=== PATIENT | female | born 1960 | race Caucasian/White ===

== ENCOUNTER 2022-01-18 16:57 | Inpatient (IN) | payer BC, OTHER ==
[~2022-01-18] VITALS: Ht 175.3 cm; Wt 87.4 kg
[2022-01-18 17:42] LABS: Basophils # (auto) 0.2 10 ^3/uL (0-0.2); Basophils % (auto) 1.8 % (0.0-2.0); Eosinophils # (auto) 0.4 10 ^3/uL (0-0.8); Eosinophils % (auto) 4.3 % (0.0-7.0); Hematocrit 34.7 % (36.0-46.0); Hemoglobin 12.1 g/dL (12.2-16.2); Lymphocytes # (auto) 3.3 10 ^3/uL (0.4-5.4); Lymphocytes % (auto) 32.3 % (10.0-50.0); Mean Corpuscular Hemoglobin 32.9 pg (28.0-32.0); Mean Corpuscular Hgb Conc. 34.9 g/dL (32.0-36.0); Mean Corpuscular Volume 94.3 fL (80.0-100.0); Monocytes # (auto) 0.6 10 ^3/uL (0-1.3); Monocytes % (auto) 6.1 % (0.0-12.0); Neutrophils # (auto) 5.6 10 ^3/uL (1.6-8.6); Neutrophils % (auto) 55.5 % (37.0-80.0); Nucleated Red Blood Cells % 0.1 %; Red Blood Cells 3.68 10^6/uL (4.0-5.20); Red Cell Distribution Width 13.6 % (11.8-14.3); White Blood Cell 10.1 10^3/uL (4.4-10.8)
[2022-01-18 18:03] LABS: Albumin 3.6 g/dL (3.4-5.0); Calcium 12.7 mg/dL (8.5-10.1); Potassium 4.1 mmol/L (3.5-5.1)
[2022-01-18 18:06] LABS: Bilirubin, Total 0.4 mg/dL (0.2-1.0); Total Protein 7.2 g/dL (6.4-8.2)
[2022-01-18 19:17] LABS: INR 0.99 (0.9-1.15); Partial Thromboplastin Time 23.3 sec (23.6-33.0)
[2022-01-18] MEDS ORDERED: DOCUSATE SOD 100 MG CAP PO PRN (21:30)
[2022-01-18] MEDS ORDERED: ACETAMINOPHEN 325 MG TAB PO PRN (21:30)
[2022-01-18] MEDS ORDERED: ENOXAPARIN SOD 100 MG/1 ML SYRINGE SC ONE (21:30)
[2022-01-18] MEDS ORDERED: ONDANSETRON HCL 4 MG/2 ML VIAL IV PRN (21:30)
[2022-01-18] MEDS: HEPARIN SODIUM (PORCINE) 5000 UNITS/ML 1ML VIAL SC SCH (22:00)
[2022-01-18] MEDS: SODIUM CHLOR 0.9% PF (SALINE LOCK) 10ML VIAL/SYR IV SCH (22:13)
[2022-01-18] MEDS ORDERED: MORPHINE SULFATE INJ 2 MG/ml SYRG IV PRN (22:45)
[2022-01-18] MEDS ORDERED: NITROGLYCERIN 0.4 MG SL TAB SL PRN (22:45)
[2022-01-18 23:51] VITALS: BP 140/82
[2022-01-19] MEDS: SODIUM CHLOR 0.9% PF (SALINE LOCK) 10ML VIAL/SYR IV SCH ×3 (05:56→21:33)
[2022-01-19] MEDS: HYDROcodone-ACET 5/325MG TAB PO PRN ×3 (06:00→21:37)
[2022-01-19 06:29] LABS: Basophils # (auto) 0.1 10 ^3/uL (0-0.2); Basophils % (auto) 1.3 % (0.0-2.0); Eosinophils # (auto) 0.5 10 ^3/uL (0-0.8); Eosinophils % (auto) 5.4 % (0.0-7.0); Hematocrit 34.5 % (36.0-46.0); Hemoglobin 12.1 g/dL (12.2-16.2); Lymphocytes # (auto) 2.7 10 ^3/uL (0.4-5.4); Lymphocytes % (auto) 28.6 % (10.0-50.0); Mean Corpuscular Hgb Conc. 35.1 g/dL (32.0-36.0); Mean Corpuscular Volume 93.8 fL (80.0-100.0); Monocytes # (auto) 0.6 10 ^3/uL (0-1.3); Monocytes % (auto) 6.4 % (0.0-12.0); Neutrophils # (auto) 5.6 10 ^3/uL (1.6-8.6); Neutrophils % (auto) 58.3 % (37.0-80.0); Nucleated Red Blood Cells % 0.1 %; Red Blood Cells 3.68 10^6/uL (4.0-5.20); Red Cell Distribution Width 13.5 % (11.8-14.3); White Blood Cell 9.6 10^3/uL (4.4-10.8)
[2022-01-19 06:52] LABS: Albumin 3.2 g/dL (3.4-5.0); Calcium 12.3 mg/dL (8.5-10.1); Potassium 4.3 mmol/L (3.5-5.1)
[2022-01-19 06:58] LABS: BUN/Creatinine Ratio 21.2; Bilirubin, Total 0.4 mg/dL (0.2-1.0); Total Protein 6.4 g/dL (6.4-8.2)
[2022-01-19] MEDS ORDERED: BACL10TA PO (07:05)
[2022-01-19] MEDS ORDERED: DOCU-94 PO (07:15)
[2022-01-19] MEDS ORDERED: FAMO20TA10 GT (07:15)
[2022-01-19] MEDS ORDERED: TRAM50TA2 PO ×2 (07:15)
[2022-01-19 07:45] VITALS: BP 137/91
[2022-01-19 08:30] VITALS: BP 147/88
[2022-01-19] MEDS: HEPARIN SODIUM (PORCINE) 5000 UNITS/ML 1ML VIAL SC SCH (09:37)
[2022-01-19 13:00] VITALS: BP 147/85
[2022-01-19] MEDS ORDERED: hydrALAZINE HCL 20 MG/ML VL IV PRN (14:30)
[2022-01-19] MEDS ORDERED: NICOTINE 21MG/24 HR TOPICAL PATCH TD ONE (14:45)
[2022-01-19] MEDS: SODIUM CHLORIDE 0.9% 1,000 ML IV SCH (15:17)
[2022-01-19 17:00] VITALS: BP 150/79
[2022-01-19 19:14] LABS: Alcohol, Urine < 3.0 mg/dL (0-10); Amphetamine Screen, Urine NEGATIVE (NEGATIVE); Barbiturate Scree,Urine NEGATIVE (NEGATIVE); Benzodiazephine Screen, Urine NEGATIVE (NEGATIVE); Cannabinoid Screen, Urine NEGATIVE (NEGATIVE); Cocaine Screen, Urine NEGATIVE (NEGATIVE); Opiate Scree,Urine NEGATIVE (NEGATIVE); Phencyclidine Screen, Urine NEGATIVE (NEGATIVE)
[2022-01-19] MEDS: APIXABAN 5 MG TAB PO SCH (21:32)
[2022-01-19 22:00] VITALS: BP 149/79
[2022-01-20] MEDS: SODIUM CHLORIDE 0.9% 1,000 ML IV SCH ×3 (03:13→21:24)
[2022-01-20 05:00] VITALS: BP 151/78
[2022-01-20 05:29] LABS: Basophils # (auto) 0.1 10 ^3/uL (0-0.2); Eosinophils # (auto) 0.4 10 ^3/uL (0-0.8); Eosinophils % (auto) 4.2 % (0.0-7.0); Hematocrit 34.1 % (36.0-46.0); Hemoglobin 11.8 g/dL (12.2-16.2); Lymphocytes % (auto) 35.5 % (10.0-50.0); Mean Corpuscular Hemoglobin 32.6 pg (28.0-32.0); Mean Corpuscular Hgb Conc. 34.6 g/dL (32.0-36.0); Mean Corpuscular Volume 94.3 fL (80.0-100.0); Monocytes # (auto) 0.6 10 ^3/uL (0-1.3); Monocytes % (auto) 7.4 % (0.0-12.0); Neutrophils # (auto) 4.3 10 ^3/uL (1.6-8.6); Neutrophils % (auto) 51.9 % (37.0-80.0); Red Blood Cells 3.62 10^6/uL (4.0-5.20); Red Cell Distribution Width 13.4 % (11.8-14.3); White Blood Cell 8.3 10^3/uL (4.4-10.8)
[2022-01-20 05:34] LABS: Magnesium 1.8 mg/dL (1.6-2.6); Potassium 4.1 mmol/L (3.5-5.1)
[2022-01-20 05:42] LABS: Albumin 3.1 g/dL (3.4-5.0); BUN/Creatinine Ratio 19.1; Bilirubin, Total 0.4 mg/dL (0.2-1.0); Calcium 12.3 mg/dL (8.5-10.1); Total Protein 6.5 g/dL (6.4-8.2)
[2022-01-20] MEDS: SODIUM CHLOR 0.9% PF (SALINE LOCK) 10ML VIAL/SYR IV SCH ×3 (05:45→21:03)
[2022-01-20 07:30] VITALS: BP 137/78
[2022-01-20] MEDS: amLODIPine BESYLATE 5 MG TAB PO SCH (08:53)
[2022-01-20] MEDS: APIXABAN 5 MG TAB PO SCH ×2 (08:53→21:03)
[2022-01-20] MEDS: HYDROcodone-ACET 5/325MG TAB PO PRN ×3 (08:54→21:07)
[2022-01-20] MEDS: NICOTINE 21MG/24 HR TOPICAL PATCH TD SCH (08:55)
[2022-01-20 09:00] VITALS: BP 137/78
[2022-01-20 13:00] VITALS: BP 143/79
[2022-01-20 17:00] VITALS: BP 133/77
[2022-01-20 22:00] VITALS: BP 130/79
[2022-01-21] VITALS (7 sets, daily range): BP systolic 127–152; BP diastolic 74–91
[2022-01-21] MEDS: SODIUM CHLOR 0.9% PF (SALINE LOCK) 10ML VIAL/SYR IV SCH ×3 (05:49→20:20)
[2022-01-21] MEDS: HYDROcodone-ACET 5/325MG TAB PO PRN ×3 (05:49→20:12)
[2022-01-21 06:39] LABS: BUN/Creatinine Ratio 17.9; Calcium 12.6 mg/dL (8.5-10.1); Potassium 4.4 mmol/L (3.5-5.1)
[2022-01-21] MEDS: APIXABAN 5 MG TAB PO SCH ×2 (09:36→20:21)
[2022-01-21] MEDS: NICOTINE 21MG/24 HR TOPICAL PATCH TD SCH (09:37)
[2022-01-21] MEDS: amLODIPine BESYLATE 5 MG TAB PO SCH (09:37)
[2022-01-21] MEDS ORDERED: ERGOCALCIFEROL 50,000 UNIT(1.25MG) CAP PO SCH (15:15)
[2022-01-21] MEDS ORDERED: IOHEXOL 300 MG/ML 100ML BOTTLE IJ ONE (18:00)
[2022-01-21] MEDS: SODIUM CHLORIDE 0.9% 1,000 ML IV SCH (20:20)
[2022-01-22] MEDS: HYDROcodone-ACET 5/325MG TAB PO PRN ×2 (02:49→10:02)
[2022-01-22 05:00] VITALS: BP 124/75
[2022-01-22] MEDS: SODIUM CHLOR 0.9% PF (SALINE LOCK) 10ML VIAL/SYR IV SCH (06:23)
[2022-01-22 06:54] LABS: Calcium 12.6 mg/dL (8.5-10.1); Potassium 4.9 mmol/L (3.5-5.1)
[2022-01-22 06:56] LABS: BUN/Creatinine Ratio 22.3
[2022-01-22] MEDS: SODIUM CHLORIDE 0.9% 1,000 ML IV SCH (09:10)
[2022-01-22 09:21] VITALS: BP 135/59
[2022-01-22] MEDS: NICOTINE 21MG/24 HR TOPICAL PATCH TD SCH (10:00)
[2022-01-22] MEDS: amLODIPine BESYLATE 5 MG TAB PO SCH (10:02)
[2022-01-22] MEDS: APIXABAN 5 MG TAB PO SCH (10:02)
[2022-01-22 13:00] VITALS: BP 115/76
[2022-01-22] MEDS ORDERED: APIX5TAB4 PO (13:00)
[2022-01-22] MEDS ORDERED: NIC21P TOP (13:00)
[2022-01-22] MEDS ORDERED: CHOL20007 PO (13:00)
[2022-01-22] MEDS ORDERED: AML5T PO (13:00)
[2022-01-22 13:17] VITALS: BP 115/76
[2022-01-26] MEDS ORDERED: APIXABAN 5 MG TAB PO SCH (22:00)
== END 2022-01-22 14:20 | disposition home or self-care (01) | DRG 299 ==
LOC: ER 16:57 → TELE 22:31 → TELE-WESTW 23:46 → WEST WING 01-20 13:46
PROVIDERS: ADMIT Nurse Practitioner Family; ATTEND Internal Medicine
DX: I82.441 Acute embolism and thrombosis of right tibial vein (principal); N17.0 Acute kidney failure with tubular necrosis; I82.411 Acute embolism and thrombosis of right femoral vein; E55.9 Vitamin D deficiency, unspecified; F17.200 Nicotine dependence, unspecified, uncomplicated; I12.9 Hypertensive chronic kidney disease with stage 1 through stage 4 chronic kidney disease, or unspecified chronic kidney disease; N18.9 Chronic kidney disease, unspecified; K80.20 Calculus of gallbladder without cholecystitis without obstruction; E21.3 Hyperparathyroidism, unspecified; Z20.822 Contact with and (suspected) exposure to COVID-19; E04.1 Nontoxic single thyroid nodule; I82.431 Acute embolism and thrombosis of right popliteal vein; Z86.718 Personal history of other venous thrombosis and embolism; Z90.710 Acquired absence of both cervix and uterus; Z88.2 Allergy status to sulfonamides
CPT/HCPCS: 36415; 71260; 74177; 80048; 80053; 80061; 80307; 82306; 82310; 83735; 83970; 84443; 84484; 85025; 85610; 85730; 93970; 96372; G0378